=== PATIENT | male | born 1970 ===

== ENCOUNTER 2018-08-30 06:00 | Day surgery (SDC) | payer OTHER ==
[2018-08-30] MEDS ORDERED: PERCOCET 5-3251 EACH PO (09:03)
[2018-08-30] MEDS ORDERED: COLACE100 MG PO (09:03)
[2018-08-30] MEDS ORDERED: NEURONTIN300 MG PO (09:03)
== END 2018-08-30 10:40 | disposition home or self-care (01) ==
LOC: CIR.AMB 06:00
DX: K42.0 Umbilical hernia with obstruction, without gangrene (principal)